=== PATIENT | female | born 1955 | race Caucasian/White ===

== ENCOUNTER 2017-05-20 08:30 | Emergency (ER) | payer OTHER ==
[~2017-05-20] VITALS: Ht 162.6 cm; Wt 66.9 kg
[2017-05-20 08:34] VITALS: BP 160/80; PULSE 67; RESP 16; TEMP 97.9; O2SAT 98
[2017-05-20] MEDS ORDERED: ESTR1TAB PO (08:43)
[2017-05-20] MEDS ORDERED: DIOV160T3 PO (08:43)
[2017-05-20] MEDS ORDERED: SYNT88TA PO (08:43)
--- NOTE | 2017-05-20 09:11 | PD ---
HPI Chief Complaint: Injury Time Seen by Provider: 08:36 Travel History International Travel<30 days: No Contact w/Intl Traveler<30days: No Traveled to known affect area: No History of Present Illness HPI This is a 61-year-old female who presents here complaining of left foot pain. Patient states that 2 weeks ago she dropped a luggage on her left foot and was swollen and then the swelling got better but then recently she started noticing mild pain on her left foot. Patient reports that 3 out of 10 pain on the dorsal aspect of her left foot, bowl, constant, no radiation, not associated with any motor or sensory loss, patient is able to bear weight on her foot. PFSH Past Medical History Cardiovascular Problems: Yes (htn on meds) Diabetes: No Diminished Hearing: No Hypertension: Yes Thyroid Disease: Yes Tetanus Vaccination: Unknown ?: Not Past Surgical History Appendectomy: Yes Cholecystectomy: Yes Hysterectomy: Yes Other Surgery: Yes (BILAT. ROTATOR CUFF REPAIR) Social History Alcohol Use: Yes (SOC) Tobacco Use: No Substance Use: No Allergies-Medications (Allergen,Severity, Reaction): Coded Allergies: No Known Allergies (Unverified , 05/20/17) Reported Meds & Prescriptions Reported Meds & Active Scripts Active Reported Estradiol 1 Mg Tab 1 Mg PO DAILY Synthroid (Levothyroxine Sodium) 88 Mcg Tab 88 Mcg PO DAILY Diovan Hct (Valsartan-Hydrochlorothiazide) 160-12.5 Mg Tab 1 Tab PO DAILY Review of Systems Except as stated in HPI: all other systems reviewed are Neg Physical Exam Narrative GENERAL: Well-nourished, well-developed patient. SKIN: Focused skin assessment warm/dry. HEAD: Normocephalic. EYES: No scleral icterus. No injection or drainage. NECK: Supple, trachea midline. No JVD or lymphadenopathy. CARDIOVASCULAR: Regular rate and rhythm without murmurs, gallops, or rubs. RESPIRATORY: Breath sounds equal bilaterally. No accessory muscle use. GASTROINTESTINAL: Abdomen soft, non-tender, nondistended. MUSCULOSKELETAL: Mild tenderness over the dorsal aspect of the first and second metatarsals, no cyanosis, or edema, pulses intact motor and sensation intact. BACK: Nontender without obvious deformity. No CVA tenderness. Data Data Last Documented VS Vital Signs Date Time Temp Pulse Resp B/P (MAP) Pulse Ox O2 Delivery O2 Flow Rate FiO2 05/20/17 08:34 97.9 67 16 160/80 (106) 98 Orders Orders Foot, Complete (Vfi2pta) (05/20/17 ) MDM Medical Decision Making Medical Screen Exam Complete: Yes Emergency Medical Condition: Yes Differential Diagnosis Fracture, soft tissue swelling, tendinitis. Narrative Course This is a 61-year-old female who presented to the ER complaining of left foot pain. x-rays negative, patient is stable to be discharged to follow-up with orthopedics if needed. Explained to the patient that she may need repeat x-ray if symptoms persist in 7-10 days. Diagnosis Primary Impression: Foot contusion Qualified Codes: S90.32XA - Contusion of left foot, initial encounter Additional Instructions: If symptoms persist return to the ER for repeat x-ray in 7-10 days. Otherwise follow-up with primary care physician. Disposition: 01 DISCHARGE HOME Condition: Stable Enmanuel Lockett MD May 20, 2017 09:11
--- NOTE | 2017-05-20 09:31 | RADRPT ---
EXAM DATE/TIME: 05/20/2017 08:49 [facility] COMPARISON: No previous studies available for comparison. INDICATIONS : Left foot pain post dropping suitcase on it. MEDICAL HISTORY : None. SURGICAL HISTORY : None. ENCOUNTER: Initial ACUITY: 3 days PAIN SCORE: 5/10 LOCATION: Left dorsal foot FINDINGS: Three view examination of the left foot demonstrates no soft tissue swelling, dislocation, or fractur e. The tarsal bones appear intact. The interphalangeal and metatarsophalangeal joints are intact. The calcaneus is intact. Bony mineralization is normal. CONCLUSION: Negative for fracture or dislocation. Follow up in 7-10 days is suggested if symptoms persist. Carlos Diaz MD FACR on May 20, 2017 at 9:29 Board Certified Radiologist. This report was verified electronically.
== END 2017-05-20 10:00 | disposition home or self-care (01) ==
LOC: PHED 08:30
DX: S90.32XA Contusion of left foot, initial encounter (principal); E07.9 Disorder of thyroid, unspecified; I10 Essential (primary) hypertension; W22.8XXA Striking against or struck by other objects, initial encounter
CPT/HCPCS: 73630; 99283